=== PATIENT | female | born 1980 | race Caucasian/White ===

== ENCOUNTER → 2020-09-13 10:25 | Outpatient (CLI) | payer MEDICAID, SELFPAY ==
--- NOTE | 2020-09-15 10:38 | PFT ---
INTRODUCTION: The patient is a 40-year-old female that presents for pulmonary function studies secondary to a diagnosis of shortness of breath. Respiratory therapy reports good patient effort. Bronchodilators were used during testing. INTERPRETATION: Forced expiration spirometry demonstrates the presence of a mild large airways obstructive ventilatory defect. There was no significant response to aerosolized bronchodilators. Spirograms are of good quality and plateau gradually indicating slow emptying of the lungs. Body plethysmography was performed and reveals a decreased TLC to 4.58 L, 81% of predicted, indicative of a mild restrictive ventilatory impairment. Diffusing capacity by single breath CO is reduced at 66% of predicted. IMPRESSION: Mild mixed ventilatory defect with symmetric reduction in diffusing capacity.
== END ==
PROVIDERS: PCP Nurse Practitioner Family; Referring Provider Nurse Practitioner Family; Visit Provider Nurse Practitioner Family
DX: R06.02 Shortness of breath (principal); R07.89 Other chest pain
CPT/HCPCS: 94060; 94726; 94729

== ENCOUNTER 2023-11-16 12:42 | Emergency (ER) | payer MEDICAID, SELFPAY ==
[2023-11-16 12:43] VITALS: BP 109/81; PULSE 98; RESP 14; TEMP 35.3; O2SAT 95; BMI 36.8
[2023-11-16 12:59] VITALS: TEMP 36.8
--- NOTE | 2023-11-16 14:20 | CT_ITS ---
STUDY: CT BRAIN WITHOUT CONTRAST REASON FOR EXAM: Female, 43 years old. Headache RADIATION DOSAGE (If Supplied By Facility): CTDIvol = ( 44.99 ) mGy, DLP = ( 694.87 ) mGycm TECHNIQUE: Transaxial CT imaging of the brain was performed without administration of intravenous contrast material. Individualized dose optimization techniques were used for this CT. COMPARISON: No relevant priors. FINDINGS: Normal soft tissue structures. Normal calvarium. Normal size ventricles and extra-axial spaces for the patient''s age. Normal white matter tracts of the cerebral hemispheres. Normal basal ganglia and thalami. Normal brainstem. Normal cerebellum. There is no intracranial hemorrhage. There are no findings of an acute ischemic infarction. Normal visualized paranasal sinuses. CT/Brain/Head without Contrast IMPRESSION: Normal unenhanced CT scan of the brain. Electronically Signed: David Mcginnis MD at 15:07 EST ,
--- NOTE | 2023-11-16 14:20 | RAD_ITS ---
STUDY: X-RAY CHEST REASON FOR EXAM: Female, 43 years old. Cough TECHNIQUE: Single AP portable view of the chest. COMPARISON: Comparison is made with prior study dated July 23, 2014. FINDINGS: Hyperinflation. Scattered calcified granulomas. There is no demonstrated pleural abnormality. Normal size heart. Normal mediastinum and dandre. Normal visualized pulmonary arteries. Normal visualized aortic arch and descending thoracic aorta. Normal visualized thoracic spine. Normal visualized ribs, clavicles, and shoulders. There is no demonstrated abnormality of the visualized soft tissue structures of the upper abdomen. RAD/Chest 1 View (Portable) IMPRESSION: No acute abnormality is seen. Electronically Signed: David Mcginnis MD at 15:01 EST ,
--- NOTE | 2023-11-16 14:26 | NURSING ---
NO OLD EKGS
[2023-11-16] MEDS: Ondansetron 4 MG/2 ML Vial IV (14:40)
[2023-11-16] MEDS: Ketorolac 30 MG/ML Syringe IV (14:40)
[2023-11-16] MEDS: 0.9% Normal Saline (1000mL) 1,000 ML 1000 ML IV (14:41)
[2023-11-16 14:53] LABS: Absolute Neutrophil Count 4.8 X10^3/uL (2.0-7.7); Basophil# 0.04 X10^3/uL; Basophil% 0.5 % (0-1); Eosinophil# 0.04 X10^3/uL; Eosinophils% 0.5 % (0-5); Hematocrit 41.8 % (37-47); Hemoglobin 13.2 g/dL (12.0-15.0); Lymphocyte % 27.8 % (19-41); Mean Corp Hgb Conc 31.6 g/dL (32-36); Mean Corpuscular Hgb 26.7 pg (27.0-32.0); Mean Corpuscular Volume 84.4 fL (81-99); Mean Platelet Vol. 11.2 fl (6.2-12.0); Monocyte# 0.61 X10^3/uL; Monocyte% 8.1 % (0-10); NRBC Flagged by Analyzer 0 % (0-5); Neutrophil # 4.75 X10^3/uL (2.7-7.7); Neutrophil % 62.8 % (47-70); Platelet Count 240 K/mm3 (150-450); RBC Distribution Width CV 14.5 % (11.6-14.6); RBC Distribution Width SD 44.3 fl (35.1-43.9); Red Blood Count 4.95 M/mm3 (4.2-5.4); White Blood Count 7.6 K/mm3 (4.4-11.0)
[2023-11-16 15:08] LABS: AST(SGOT) 14 U/L (15-37); Alanine Aminotransfer ALT/SGPT 27 U/L (13-56); Albumin, Serum 3.7 g/dL (3.2-5.0); Alkaline Phosphatase 53 U/L (45-117); Anion Gap 4 (5-15); BUN 13 mg/dL (7-18); BUN/Creat Ratio 16.8 RATIO (10-20); Calcium,Total 9.4 mg/dL (8.5-10.1); Chloride 111 mmol/L (98-107); Creatinine, Serum 0.78 mg/dL (0.55-1.02); EST Glomerular Filtration Rate 87 mL/min (>60); Est Glom Filt Rate - Afr Amer 105 mL/min (>60); Estimated Creatinine Clearance 119.27 ml/min; Globulin 3.7 g/dL (2.2-4.2); Glucose 101 mg/dL (74-106); Potassium 4.1 mmol/L (3.5-5.1); Protein, Total 7.4 g/dL (6.4-8.2); Sodium Level 140 mmol/L (136-145); Troponin-I HS 4 pg/mL (3.0-54.0)
[2023-11-16 15:19] VITALS: BP 107/76; PULSE 85; RESP 20; O2SAT 97
[2023-11-16 15:33] LABS: Mucous, Urine 0 SEEN /hpf (<or=2+)
[2023-11-16 15:37] LABS: Color, Urine Yellow (Yellow); Glucose, Dipstick Normal (Normal); Ketone-Dipstick 5 mg/dl (Negative); Leukocyte Esterase-Dipstick 25 /ul (Negative); Nitrite-Dipstick Negative (Negative); Occult Blood-Urine 250 /ul (Negative); Protein-Dipstick 30 mg/dl (Negative); Urine Bilirubin Dipstick Negative (Negative); Urine Clarity Sl. Cloudy (Clear); Urine Urobilinogen Normal (Normal); Urine pH 6.5 (5.0 - 8.0)
[2023-11-16 15:43] LABS: Red Blood Cells-Urine 25-50 SEEN /hpf (0-5); Squamous Epithelial Cells - UA 5-10 SEEN /hpf (5-10)
[2023-11-16 15:44] LABS: Bacteria RARE /hpf (None Seen); White Blood Cells 5-10 SEEN /hpf (0-5)
[2023-11-16 16:19] VITALS: BP 118/80; PULSE 89; RESP 18; O2SAT 98
--- NOTE | 2023-11-16 16:20 | EDS_ITS ---
HPI History of Present Illness Chief Complaint: Headache Informant: patient Narrative Narrative: 43-year-old female sent to the emergency room from urgent care with frontal headache. Patient states that she woke yesterday feeling generally poor she noted frontal headache sore throat some chest tightness. She has had some rhinorrhea chills. No vomiting or diarrhea. She states multiple people have been sick at work. She had influenza and RSV swabs earlier today through the urgent care that were negative. Patient states that she has had some blood in her urine. Recently treated for urinary tract infection had blood in the urine then. She took Cipro for 3 days. She states that it does not seem that the Cipro had helped and wonders if she still has an infection [facility] Medical History Headache Home Medications fluoxetine 20 mg capsule 60 mg PO DAILY 10/05/13 [History Last Taken Unknown] ondansetron 4 mg disintegrating tablet 4 mg PO Q8H PRN PRN Nausea #10 tabs 05/09/16 [Rx Last Taken Unknown] buspirone 15 mg tablet 15 mg PO DAILY 11/16/23 [History Last Taken Unknown] ciprofloxacin HCl 500 mg tablet 500 mg PO BID #10 TABLETS 11/16/23 [Rx Last Taken Unknown] duloxetine 60 mg capsule,delayed release 60 mg PO DAILY 11/16/23 [History Last Taken Unknown] famotidine 20 mg tablet 20 mg PO BID 11/16/23 [History Last Taken Unknown] gabapentin 400 mg capsule 400 mg PO TID 11/16/23 [History Last Taken Unknown] hydrocodone-acetaminophen 5-325mg 5mg-325mg 1 tab PO Q6H PRN PRN Pain 3 days #12 TABLETS 11/16/23 [Rx Last Taken Unknown] meloxicam 15 mg tablet 15 mg PO DAILY 11/16/23 [History Last Taken Unknown] sennosides 8.6 mg-docusate sodium 50 mg tablet (Senna Plus) 1 tab-cap PO DAILY 11/16/23 [History Last Taken Unknown] Allergy/AdvReac Type Severity Reaction Status Date / Time No Known Allergies Allergy Verified 11/16/23 12:43 Social History Smoking Status: Never smoker ROS ROS ED Constitutional Constitutional ED: Reports chills; Denies fever(s) or weight loss Eyes Eyes: Denies change in vision or diplopia ENT ENT ED: Reports rhinorrhea and sore throat; Denies ear pain Cardiovascular Cardiovascular: Reports chest pain; Denies orthopnea, palpitations or racing heartbeat Respiratory/Chest Respiratory/Chest: Reports dyspnea; Denies cough or orthopnea Gastrointestinal Gastrointestinal: Denies abdominal pain, diarrhea, nausea or vomiting Genitourinary Genitourinary ED: Reports hematuria; Denies dysuria or urinary frequency Musculoskeletal Musculoskeletal: Reports myalgias; Denies arthralgias, back pain or neck pain Integumentary Denies abscess or rash Neurologic Neurologic: Denies headache(s) or weakness Psychiatric Psychiatric: Denies anxiety, depression, suicidal ideation or suicidal thoughts Endocrine Endocrinology: Denies polydipsia, polyphagia or polyuria Allergic/Immunologic Allergic/Immunologic ED: Denies mouth swelling, tongue swelling or urticaria EXAM Physical Exam Const Vital Signs: 11/16/23 12:43 11/16/23 12:54 11/16/23 12:55 Temperature 95.6 F L Temperature Source Temporal Pulse Rate 98 Respiratory Rate 14 Respiratory Effort Normal Non-Labored Normal Non-Labored Respiratory Depth Normal Respiratory Pattern Normal Normal Blood Pressure 109/81 H Blood Pressure Mean 90 Pulse Ox 95 Oxygen Delivery Method Room Air 11/16/23 12:59 11/16/23 15:19 Temperature 98.2 F Temperature Source Oral Pulse Rate 85 Respiratory Rate 20 H Respiratory Effort Respiratory Depth Respiratory Pattern Blood Pressure 107/76 Blood Pressure Mean 86 Pulse Ox 97 Oxygen Delivery Method Room Air Positive well nourished and well developed General Appearance ED: well developed HEENT Reports normocephalic, head/scalp atraumatic and moist mucous membranes Eyes PERRL and EOMs intact bilaterally Neck no lymphadenopathy, supple and no JVD Neck Narrative: No meningeal signs. Patient moves easily in the bed. She sits up quite quickly and is able to turn her head from [id number] without any difficulty. Resp normal respiratory effort and clear to auscultation bilaterally Cardio regular rate, regular rhythm and no murmurs GI normal to inspection, nondistended, normoactive bowel sounds and non-tender Palpation: soft Back/Spine no CVA tenderness and normal ROM Extremity normal to inspection General Extremety ED: Negative for edema General Extremity: Negative for edema Neuro oriented x3 and CN's II-XII intact bilaterally Sensorium / Orientation: alert Motor Exam: strength 5/5 throughout Psych mental status grossly normal Mood & Affect: Negative for depressed or tearful Skin no rashes or lesions noted and no wounds MDM MDM MDM Narrative Medical decision making narrative: Patient received Zofran fluids and IV Toradol. Basic blood work showed a white count 7.6 hemoglobin 13.2 and a platelet count of 240. CMP essentially negative. Urinalysis 25-50 red cells 5-10 white cells 5-10 squamous cells rare bacteria. Negative nitrates. This was sent for culture. Patient continues to have a headache. I do not think she has meningitis or encephalitis. CT of the brain is negative. May end up interpretation of chest x-ray is no acute process. She was recently on Cipro for 3 days. 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 She may need to see urology. Think she most likely has a viral syndrome. Patient advised return instructions notes understanding History & Record Review Discussion w/independent historian: Patient Additional record(s) reviewed:: Prior labs Lab Data Attestation: I reviewed the patient's lab results. Labs: Laboratory Results - last 24 hr 11/16/23 11/16/23 14:42 15:15 WBC 7.6 RBC 4.95 Hgb 13.2 Hct 41.8 MCV 84.4 MCH 26.7 L MCHC 31.6 L RDW Std Deviation 44.3 H RDW Coeff of Kamran 14.5 Plt Count 240 MPV 11.2 Immature Gran % (Auto) 0.300 Neut % (Auto) 62.8 Lymph % (Auto) 27.8 [place] % (Auto) 8.1 Eos % (Auto) 0.5 Baso % (Auto) 0.5 Absolute Neuts (auto) 4.8 Absolute Lymphs (auto) 2.10 Nucleated RBC % 0 Sodium 140 Potassium 4.1 Chloride 111 H Carbon Dioxide 25.0 Anion Gap 4 L BUN 13 Creatinine 0.78 Estim Creat Clear Calc 119.27 Est GFR (MDRD) Af Amer 105 Est GFR (MDRD) Non-Af 87 BUN/Creatinine Ratio 16.8 Glucose 101 Calcium 9.4 Total Bilirubin 0.30 AST 14 L ALT 27 Alkaline Phosphatase 53 Troponin I High Sens 4 Total Protein 7.4 Albumin 3.7 Globulin 3.7 Albumin/Globulin Ratio 1.0 Urine Color Yellow Urine Clarity Sl. Cloudy Urine pH 6.5 Ur Specific [place] 1.020 Urine Protein 30 H Urine Glucose (UA) Normal Urine Ketones 5 H Urine Occult Blood 250 H Urine Nitrite Negative Urine Bilirubin Negative Urine Urobilinogen Normal Ur Leukocyte Esterase 25 H Urine RBC 25-50 SEEN Urine WBC 5-10 SEEN Ur Squamous Epith Cells 5-10 SEEN Urine Bacteria RARE Urine Mucus 0 SEEN Radiography Diagnostic Testing: Clinical Impression(s) from Imaging Studies Brain CT 11/16/23 14:20 IMPRESSION: Normal unenhanced CT scan of the brain. Electronically Signed: David Mcginnis MD at 15:07 EST , Chest X-Ray 11/16/23 14:20 IMPRESSION: No acute abnormality is seen. Electronically Signed: David Mcginnis MD at 15:01 EST , EKG Initial EKG: Attestation: I personally reviewed and interpreted this EKG as follows: Comments: Normal sinus rhythm ventricular rate of 79 bpm Discharge Plan Triage Chief Complaint: Headache Other Complaint: Cold Sx ED Provider: Danial Guillaume Dx/Rx/DC Orders Clinical Impression: Hematuria, Acute viral syndrome, Headache Instructions: ED Viral Syndrome (Adult) Prescriptions: New ciprofloxacin HCl [ciprofloxacin HCl] 500 mg tablet 500 mg PO BID Qty: 10 0RF hydrocodone-acetaminophen [hydrocodone-acetaminophen] 5-325 mg tablet 1 tab PO Q6H PRN PRN (Reason: Pain) 3 Days Qty: 12 0RF No Action fluoxetine 20 MG capsule 60 mg PO DAILY ondansetron 4 MG tablet 4 mg PO Q8H PRN PRN (Reason: Nausea) Qty: 10 0RF duloxetine 60 mg capsule,delayed release(DR/EC) 60 mg PO DAILY Patient Comments: TAKE 1 CAPSULE BY MOUTH EVERY DAY gabapentin 400 mg capsule 400 mg PO TID Patient Comments: TAKE 1 CAPSULE BY MOUTH 3 TIMES DAILY. meloxicam 15 mg tablet 15 mg PO DAILY Patient Comments: TAKE 1 TABLET BY MOUTH EVERY DAY buspirone 15 mg tablet 15 mg PO DAILY Patient Comments: TAKE 1 TABLET BY MOUTH 3 TIMES DAILY. famotidine 20 mg tablet 20 mg PO BID Patient Comments: TAKE 1 TABLET BY MOUTH TWICE A DAY FOR 14 DAYS sennosides-docusate sodium [Senna Plus] 8.6-50 mg tablet 1 tab-cap PO DAILY Primary Care Provider: YOSHI KEENE Referrals: YOSHI KEENE DO [Primary Care Provider] - As soon as possible Disposition Disposition: Home, Self Care
== END 2023-11-16 16:38 | disposition home or self-care (01) ==
PROVIDERS: Emergency Provider Emergency Medicine; PCP Family Medicine; Visit Provider Emergency Medicine
DX: R51.9 Headache, unspecified (principal); B34.9 Viral infection, unspecified; R31.9 Hematuria, unspecified
CPT/HCPCS: 70450; 71045; 80053; 81001; 84484; 85025; 87086; 87631; 93005; 96361; 96374; 96375; 99285; J7030; A4216; J2405

== ENCOUNTER 2024-11-03 06:03 | Emergency (ER) | payer MEDICAID, SELFPAY ==
[2024-11-03 06:05] VITALS: BP 114/82; PULSE 85; RESP 18; TEMP 36.8; O2SAT 98; BMI 38.4
--- NOTE | 2024-11-03 06:33 | RAD_ITS ---
INDICATION: pain EXAMINATION/TECHNIQUE: X-RAY - XR Spine Thoracic 3 Views COMPARISON: None FINDINGS: VERTEBRAE: Preserved vertebral body height. No fracture. No spondylolisthesis. Preservation of the normal thoracic kyphosis. No significant facet arthropathy. DISCS: Disc spaces are maintained. INCLUDED CHEST/ABDOMEN: No acute abnormalities. RAD/Thoracic Spine 3 Views IMPRESSION: No evidence of thoracic spinal fracture or spondylolisthesis. Electronically Signed: Forrest Kwan MD at 8:12 EST ,
--- NOTE | 2024-11-03 06:33 | RAD_ITS ---
STUDY: X-RAY - LUMBAR SPINE REASON FOR EXAM: Female, 44 years old. Pain following a recent fall. TECHNIQUE: view(s) of the lumbar spine were obtained. COMPARISON: None FINDINGS: Normal lumbar lordosis. There is a minimal dextroscoliosis of the lumbar spine. There is a normal alignment of the vertebrae. There is multilevel endplate spondylosis of the lumbar vertebrae. Mild degree of disc space narrowing at the L3-L4 and L5-S1 levels. Large amount of fecal material is seen in the colon. Questionable 7 mm right renal calculus. RAD/Lumbar Spine 2 or 3 Views IMPRESSION: Multilevel spondylosis. Mild degree of disc space narrowing at the L3-L4 and L5-S1 levels. Possible 7 mm right renal calculus. Large amount of fecal material is seen in the colon. Electronically Signed: David Mcginnis MD at 8:14 EST ,
[2024-11-03] MEDS: Ketorolac 30 MG/ML Syringe IM (06:44)
[2024-11-03] MEDS: Orphenadrine 60 MG/2 ML Ampul IM (06:44)
--- NOTE | 2024-11-03 07:04 | EX.ED.DYSGE1 ---
HPI History of Present Illness Chief Complaint: Back Informant: patient Narrative Narrative: Patient is a 44-year-old female with past medical history of fibromyalgia. She states a few days ago she slipped and fell landing on her low back. She denies striking her head or any loss of consciousness. She denies a history of bleeding disorder or blood thinner use. She states she has been able to get up and ambulate since the fall but has had increasing pain especially when at work and doing her job. She states has been trying her normal medication as well as [id number] medication without any symptom improvement and secondary to this she comes in for evaluation Patient denies any loss of bowel or bladder control or IV drug use. She denies any dysuria or hematuria. She states she has no concern for . [facility] Medical History Headache Home Medications ?Medication ?Instructions ?Recorded ?Last Taken ?Type buspirone 15 mg tablet 15 mg PO DAILY 11/16/23 Unknown History duloxetine 60 mg capsule,delayed 60 mg PO DAILY 11/16/23 Unknown History release gabapentin 400 mg capsule 400 mg PO TID 11/16/23 Unknown History meloxicam 15 mg tablet 15 mg PO DAILY PRN pain 11/16/23 Unknown History sennosides 8.6 mg-docusate sodium 1 tab-cap PO DAILY 11/16/23 Unknown History 50 mg tablet (Senna Plus) methocarbamol 500 mg tablet 1,000 mg (2 x 500 mg) PO 4X/DAY 11/03/24 Unknown Rx PRN Muscle pain/spasm #56 tabs oxycodone-acetaminophen 5 mg-325 1 tab PO Q6H PRN pain 3 days #12 11/03/24 Unknown Rx mg tablet (Percocet) tabs Allergy/AdvReac Type Severity Reaction Status Date / Time No Known Allergies Allergy Verified 11/03/24 06:08 Social History Smoking Status: Never smoker ROS ROS ED Constitutional Constitutional ED: Denies chills or fever(s) Eyes Eyes: Denies blurry vision or change in vision ENT ENT ED: Denies sore throat Cardiovascular Cardiovascular: Denies chest pain Respiratory/Chest Respiratory/Chest: Denies cough or dyspnea Gastrointestinal Gastrointestinal: Denies abdominal pain, diarrhea, nausea or vomiting Genitourinary Genitourinary ED: Denies dysuria or hematuria Musculoskeletal Musculoskeletal: Reports back pain Integumentary Denies rash Neurologic Neurologic: Denies headache(s), paresthesias or weakness Hematologic/Lymphatic Hematologic/Lymphatic: Denies easy bleeding or easy bruising EXAM Physical Exam Const Vital Signs: 11/03/24 06:05 11/03/24 06:08 Temperature 98.2 F Temperature Source Temporal Pulse Rate 85 Respiratory Rate 18 Respiratory Effort Normal Respiratory Pattern Normal Blood Pressure 114/82 H Blood Pressure Mean 92 Pulse Ox 98 Oxygen Delivery Method Room Air Positive well nourished and well developed General Appearance ED: well developed; Negative for pallor HEENT HEENT Narrative: Normocephalic atraumatic Eyes PERRL and EOMs intact bilaterally Neck supple Neck Narrative: No bony deformity or step-off of the cervical spine no midline tenderness to palpation Chest Wall palpation of chest normal Resp normal respiratory effort and clear to auscultation bilaterally Cardio regular rate and regular rhythm GI normal to inspection, nondistended, normoactive bowel sounds, non-tender, non-distended and no masses Auscultation: normoactive bowel sounds Palpation: soft Back/Spine Back/Spine Narrative: No bony deformity or step-off of the thoracic or lumbar spine however there is midline pain with palpation over top the lower thoracic and upper lumbar region No saddle anesthesia. Negative straight leg raise. No clonus or Babinski. Patellar reflexes are plus 1 out of 4 bilaterally. Extremity normal to inspection Extremity Narrative: Pelvis is stable there is no shortening or external rotation of either lower extremity Neuro oriented x3, CN's II-XII intact bilaterally and no sensory deficits noted Sensorium / Orientation: alert Motor Exam: strength 5/5 throughout Psych Mood & Affect: anxious Skin no rashes or lesions noted and no wounds Skin Narrative: No overlying abrasions or ecchymosis No erythema warmth or rash General Skin Exam: Negative for jaundice or pallor MDM MDM MDM Narrative Medical decision making narrative: Patient arrived to the ER with stable vitals and was ambulatory upon arrival. She reported a mechanical accidental fall roughly 5 to 7 days ago. She denied loss of bowel or bladder control or IV drug use going against cauda equina or epidural abscess. She states has been no recent surgical or injection procedures going against discitis or osteomyelitis. As she had midline pain there is concern for a compression fracture versus spinal thesis and x-rays were ordered. X-rays revealed no acute finding. 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 After receiving medication in the ER patient had improvement of her back pain. As she is neurovascularly intact with stable vitals I do not feel there is need for further workup and she is otherwise safe for discharge symptomatic care History & Record Review Discussion w/independent historian: Patient Radiography Diagnostic Testing: Clinical Impression(s) from Imaging Studies Lumbar Spine X-Ray 11/03/24 06:33 IMPRESSION: Multilevel spondylosis. Mild degree of disc space narrowing at the L3-L4 and L5-S1 levels. Possible 7 mm right renal calculus. Large amount of fecal material is seen in the colon. Electronically Signed: David Mcginnis MD at 8:14 EST , Thoracic Spine X-Ray 11/03/24 06:33 IMPRESSION: No evidence of thoracic spinal fracture or spondylolisthesis. Electronically Signed: Forrest Kwan MD at 8:12 EST , X-ray of the thoracic spine as interpreted by the emergency medicine physician reveals no acute compression fracture or spondylolisthesis X-ray of the lumbar spine as interpreted by the emergency medicine physician reveals mild disc space narrowing of the lower lumbar without compression fracture or spondylolisthesis. Discharge Plan Triage Chief Complaint: Back Other Complaint: Other, Pain/Inj ED Provider: Mika Tan Dx/Rx/DC Orders Clinical Impression: Accidental fall, Lumbar contusion, Fibromyalgia Instructions: ED Back Sprain/Strain, ED Coccyx or Sacrum Contusion Prescriptions: New methocarbamol 500 mg tablet 1,000 mg PO 4X/DAY PRN (Reason: Muscle pain/spasm) Qty: 56 0RF oxycodone-acetaminophen [Percocet] 5-325 mg tablet 1 tab PO Q6H PRN (Reason: pain) 3 Days Qty: 12 0RF No Action duloxetine 60 mg capsule,delayed release(DR/EC) 60 mg PO DAILY Patient Comments: TAKE 1 CAPSULE BY MOUTH EVERY DAY gabapentin 400 mg capsule 400 mg PO TID Patient Comments: TAKE 1 CAPSULE BY MOUTH 3 TIMES DAILY. meloxicam 15 mg tablet 15 mg PO DAILY PRN (Reason: pain ) Patient Comments: pt states this med makes her restless leg syndrome worse Rx Instructions: TAKE 1 TABLET BY MOUTH EVERY DAY buspirone 15 mg tablet 15 mg PO DAILY Patient Comments: TAKE 1 TABLET BY MOUTH 3 TIMES DAILY. sennosides-docusate sodium [Senna Plus] 8.6-50 mg tablet 1 tab-cap PO DAILY Patient Comments: needs script refilled Stand Alone Forms: ED Work / School Excuse Primary Care Provider: YOSHI KEENE Referrals: YOSHI KEENE DO [Primary Care Provider] - Activity Restrictions/Additional Instructions: Continue to stretch and ice the area to reduce pain and speed healing. Continue your home medications as directed by your doctor and add the prescribed medications from the ER for improved pain control. Return to the ER should you have any further concerns Print Language: Ug[place] Disposition Disposition: Home, Self Care Discharge Date/Time: 11/03/24 07:33
[2024-11-03 07:32] VITALS: BP 126/78; PULSE 89; RESP 16; TEMP 37; O2SAT 99
[2024-11-03] MEDS: oxyCODONE 5 MG Tablet 10 MG PO (07:32)
== END 2024-11-03 07:33 | disposition home or self-care (01) ==
PROVIDERS: Emergency Provider Emergency Medicine; PCP Family Medicine; Visit Provider Emergency Medicine
DX: S30.0XXA Contusion of lower back and pelvis, initial encounter (principal); M79.7 Fibromyalgia; W01.0XXA Fall on same level from slipping, tripping and stumbling without subsequent striking against object, initial encounter
CPT/HCPCS: 72072; 72100; 96372; 99284